=== PATIENT | female | born 1965 | race Caucasian/White ===

== ENCOUNTER 2017-07-29 20:18 | Emergency (ER) | payer OTHER ==
[~2017-07-29] VITALS: Ht 162.6 cm; Wt 80.7 kg
[~2017-07-29 20:18] MED LIST: ALBU90OI INH; ALBU90OI6 INH; AZIT500 PO; BENZ100A PO; CEFD300 PO; CONEST.625; DOXY100 PO; HYDACE5; HYDACE5325 PO; IBUP200; IBUP800 PO; LEVO750 PO; MELA3 PO; Mobic15 MG PO; NAPR220; Norco 5-325 Ta1 EACH PO; OXYACE5T PO; PROM25 PO; Percocet 5-3251 EACH PO; Prednisone20 MG PO; RXCYCL10 PO; Valium5 MG PO
[2017-07-29] MEDS ORDERED: Naprosyn500 MG PO (22:49)
[2017-07-29] MEDS ORDERED: Norco 5-325 Ta1 EACH PO (22:49)
== END 2017-07-29 22:58 | disposition home or self-care (01) ==
LOC: ER 20:18
DX: S46.911A Strain of unspecified muscle, fascia and tendon at shoulder and upper arm level, right arm, initial encounter (principal); F17.200 Nicotine dependence, unspecified, uncomplicated; X58.XXXA Exposure to other specified factors, initial encounter
CPT/HCPCS: 96372; 99283; J1885

== ENCOUNTER → 2019-11-21 | Outpatient (CLI) | payer OTHER ==
[~2019-11-21] MED LIST changes: +Naprosyn500 MG PO
[2019-11-21 20:18] LABS: Bilirubin, Urine Neg (Neg); Blood, Urine 5+ (Neg); Glucose Qualitative, Urine Neg (Neg); Ketones, Urine 1+ (Neg); Leukocyte Esterase, Urine 1+ (Neg); Nitrite, Urine Pos (Neg); Protein, Urine 4+ (Neg); Specific Gravity, Urine 1.025 (1.003-1.022); Urobilinogen, Urine NORM (Normal)
[2019-11-21 20:24] LABS: Appearance, Urine Cloudy (Clear); Color, Urine Yellow (P-Yellow); White Blood Cells, Urine 50-100 /hpf (0-5)
[2019-11-21 20:25] LABS: Bacteria Many /hpf; Calcium Oxalate Crystals Few /hpf; Red Blood Cells, Urine TNTC /hpf (0-2); Squamous Epithelial Cells Few /hpf (Few); Transitional Epithelial Cells Few /hpf (0-Rare)
== END | disposition home or self-care (01) ==
LOC: LAB SHORT 19:06 → LAB 19:06
PROVIDERS: Physician Assistant
DX: N39.0 Urinary tract infection, site not specified (principal)
CPT/HCPCS: 81001; 87077; 87086; 87186

== ENCOUNTER 2022-04-20 10:24 | Day surgery (SDC) | payer OTHER ==
[~2022-04-20] VITALS: Ht 165.1 cm; Wt 87.4 kg
[2022-04-20] MEDS ORDERED: CHLO25B (10:46)
[2022-04-20] MEDS ORDERED: ATOR20 (10:46)
[2022-04-20] MEDS ORDERED: ALBU2.5V5 (10:46)
[2022-04-20] MEDS ORDERED: LOSA25 (10:47)
[2022-04-20] MEDS ORDERED: LEVSOD75 (10:47)
[2022-04-20] MEDS ORDERED: Diflucan150 MG (10:47)
[2022-04-20] MEDS ORDERED: OXYB5 (10:47)
[2022-04-20] MEDS ORDERED: PIOG15 (10:48)
== END 2022-04-20 12:25 | disposition home or self-care (01) ==
LOC: ORSCSDS 10:24
PROVIDERS: Internal Medicine Gastroenterology
PROC: 0DBN8ZX Excision of Sigmoid Colon, Via Natural or Artificial Opening Endoscopic, Diagnostic (ICD-10-PCS; principal; 2022-04-20 11:45)
DX: Z12.11 Encounter for screening for malignant neoplasm of colon (principal); K63.5 Polyp of colon; K57.50 Diverticulosis of both small and large intestine without perforation or abscess without bleeding; K64.4 Residual hemorrhoidal skin tags; E11.9 Type 2 diabetes mellitus without complications; E78.5 Hyperlipidemia, unspecified; I10 Essential (primary) hypertension; F17.210 Nicotine dependence, cigarettes, uncomplicated; Z79.899 Other long term (current) drug therapy
CPT/HCPCS: 82947; 88305; J2704; J7120